=== PATIENT | female | born 1965 | race Caucasian/White ===

== ENCOUNTER 2018-07-07 12:03 | Inpatient (IN) | payer MEDICAID | END 2018-07-09 14:22 | disposition home or self-care (01) | LOC: ER 12:03 → ED HOLD 13:47 → SUR 3N 17:41 | PROC: 0DTJ4ZZ Resection of Appendix, Percutaneous Endoscopic Approach (ICD-10-PCS; principal; 2018-07-07 15:17) | DX: K35.80 Unspecified acute appendicitis (principal); I63.9 Cerebral infarction, unspecified; E11.9 Type 2 diabetes mellitus without complications; I10 Essential (primary) hypertension; E78.5 Hyperlipidemia, unspecified; G40.909 Epilepsy, unspecified, not intractable, without status epilepticus ==